=== PATIENT | male | born 1980 | race Caucasian/White ===

== ENCOUNTER → 2018-02-16 | Outpatient (CLI) | payer MEDICAID | LOC: FIMAGING 10:18 | PROVIDERS: ATTEND Nurse Practitioner | DX: R16.0 Hepatomegaly, not elsewhere classified (principal); K76.0 Fatty (change of) liver, not elsewhere classified; K82.1 Hydrops of gallbladder; K83.9 Disease of biliary tract, unspecified; B18.2 Chronic viral hepatitis C ==

== ENCOUNTER 2019-02-22 16:38 | Emergency (ER) | payer MEDICAID ==
--- NOTE | 2019-02-22 18:21 | EDPHY ---
General Time Seen by Provider: 02/22/19 17:43 Narrative: CLINICAL IMPRESSION: Nausea, methadone withdrawal ASSESSMENT/PLAN: 38-year-old male presents to the emergency department after failing to get his methadone for the last 3 days. Patient reports he was at a methadone clinic in [place], recently moved to [place] and has not yet established with a new methadone clinic. He has mild nausea, trouble sleeping. No reported tremors, vomiting, yawning, diaphoresis or sweating, severe abdominal pain, chest pain or shortness of breath. He has no evidence of pyelo erection, mydriasis, severe dehydration. Given that he is not in acute withdrawals he is not an ideal candidate for Suboxone. Half life of methadone is approximately 8 hr and I do not suspect this patient is not going through active severe withdrawals. Discussed with the ED pharmacist Dave and Dr. Turpin. Plan to discharge patient with promethazine. Will avoid Zofran given risk for prolonged QT with methadone use. Methadone clinic phone numbers and addresses provided. Encouraged patient to contact clinics himself. Warning signs return to ED sooner outlined in discharge DIFFERENTIAL DX: Differential diagnosis for this patient includes but not limited to alcohol intoxication, alcohol abuse, alcohol withdrawal, other substance abuse or withdrawal, toxidrome or medication overdose, CVA, head trauma, hyponatremia, hypoglycemia or other electrolyte abnormality. ED PROCEDURES: See lab and/or imaging results below ED COURSE: 6:00 p.m.: Patient seen and assessed by myself. Vital signs stable, alert, oriented, answering all questions, no reported nausea or vomiting, reports he is tired and fatigued. No diaphoresis, piloerection, yawning, tremors, or mydriasis. Discussed with the ED pharmacist. Patient not an ideal candidate for Suboxone given that he does not actively appear to have withdrawal symptoms. Will provide promethazine to use if needed. Will avoid zofran for risk of QT prolongation with methadone. Contact information for local methadone clinics provided as well. CHIEF COMPLAINT: Methadone withdrawal HPI: 38-year-old male presents to the emergency department concerned he is going through withdrawals off methadone. Patient reports he has been receiving 97 mg of methadone at a methadone clinic in [place] over the last 3 years. He reports he moved to [place] 3 days ago because he was able to stay with family and friends. He states he does not have a way to get back up to [place] however his friends apparently drove him the emergency department tonight. His last dose of methadone was 3 days ago and he denies any other opioid, IV or illicit drugs since that time. He reports feeling very tired, low energy, and intermittent nausea. No reported vomiting, severe headache, seizure activity, abdominal pain, sweating. He has not made an effort to contact local methadone clinics. PAST MEDICAL HISTORY: Past history of illicit drug abuse, on methadone See triage summary and nurse notes for addition applicable history Pertinent Past Surgical History: None reported Family History: Noncontributory Social History: Abuses illicit drugs REVIEW OF SYSTEMS: A full 10 point review of systems was negative except for those mentioned in HPI. PHYSICAL EXAM: General Appearance: Alert, oriented, lying comfortably in the bed, does not appear uncomfortable in a non tremulous cooperative, NAD, well hydrated, non- toxic appearing, VSS, no diaphoresis, no hypoxia. HEENT: Oropharynx clear is no erythema or exudates, no tonsillar hypertrophy or asymmetry. Dentition without abnormality. Eyes: PERRLA, no acute vision change, nystagmus, swelling, discharge, pain or photosensitivity. Conjunctiva pink, no pallor or injection, no mydriasis Neck: Supple, nontender, no lymphadenopathy, no midline pain, FROM, no meningismus. Respiratory: There are no retractions, lungs are clear to auscultation. Cardiac: Regular rate and rhythm, no murmurs or gallops. Gastrointestinal: [Abdomen is soft, nontender, bowel sounds normal Skin: Warm, dry, no rashes, no nodules on palpation. MEDICAL DECISION MAKING: Patient was seen independently. Secondary supervising physician at time of evaluation was: Dr Turpin . Diagnosis: Illicit drug abuse, nausea, methadone withdrawal. New, requires workup Summary: See Assessment and Plan for summary of ED visit Discussed patient with another provider: Dr. Turpin, ED pharmacist Patient Progress: Stable for discharge. - History Smoking Status: Current every day smoker - Objective Vital Signs: Initial Vital Signs Temperature (C) 36.5 C 02/22/19 17:13 Heart Rate 102 H 02/22/19 17:13 Respiratory Rate 18 02/22/19 17:13 Blood Pressure 112/74 02/22/19 17:13 O2 Sat (%) 100 02/22/19 17:13 O2 Delivery Mode Room Air Allergies/Adverse Reactions: No Known Drug Allergies Allergy (Unknown, Verified 08/17/11 13:52) Unknown Home Medications: Medication Instructions Recorded Methadone HCl 02/22/19 Promethazine HCl 25 mg PO Q6 PRN #8 tablet 02/22/19 Medications Given: Discontinued Medications Promethazine HCl (Phenergan) 25 mg PO EDNOW ONE Stop: 02/22/19 18:23 Last Admin: 02/22/19 18:27 Dose: 25 mg Departure - Departure Disposition: Home, Routine, Self-Care Clinical Impression: Methadone maintenance therapy patient Condition: Fair Instructions: Methadone (By mouth) Additional Instructions: DISCHARGE INSTRUCTIONS FROM YOUR DOCTOR Thank you for visiting our emergency department today. You were treated by a physician assistant quality manager today and your case was reviewed with our ED Attending physician. Please keep in mind that discharge from the emergency department does not mean that there is nothing wrong - it simply means that we have not identified an emergency condition that requires further evaluation or treatment in the hospital. You should always plan to follow up with primary care for re- evaluation of your condition in the next 2-3 days. If you have been referred to a specialist, please call as soon as possible (today or tomorrow) to schedule your follow up appointment at the appropriate time. [ Your vital signs are stable and you clinically do not appear to have withdrawal symptoms. Based on the half life of methadone, it is out of your system at this time. We do not prescribe methadone in the emergency department. We did give you referrals to local methadone clinics, you will have to call to set up an appointment. Or, you can return to the methadone clinic your attending in [place]. A prescription for Zofran was given to use for nausea or vomiting. Please follow-up with a primary care doctor. Return to the emergency department for worsening symptoms, vomiting, severe tremors, seizures, altered mental status or any other concerns.] People present with illnesses and injuries in different ways, and it is always possible that we have missed something. You may always return for re-evaluation if symptoms worsen or if they are not improving or if you develop new/different symptoms. Again, thank you for choosing our emergency department. We hope that you feel better. Referrals: [facility],. [Clinic] - 2-3 days, call for appt. Prescriptions: Promethazine HCl 25 mg PO Q6 PRN #8 tablet PRN Reason: Nausea/Vomiting, Can'T Take Po
[2019-02-22] MEDS ORDERED: PROMETHAZINE HCL 25 MG TAB PO ONE (18:22)
[2019-02-22 18:44] VITALS: BP 125/70
== END 2019-02-22 18:42 | disposition home or self-care (01) ==
DX: F11.23 Opioid dependence with withdrawal (principal); R11.0 Nausea